=== PATIENT | male | born 1945 | race Caucasian/White ===

== ENCOUNTER 2017-12-20 15:48 | Outpatient (CLI) | payer MEDICARE, OTHER ==
[2017-12-20 17:31] LABS: #Eosinphils 0.3 thou/uL (0.0-0.7); #Lymphocytes 1.3 thou/uL (1.20-3.40); #Monocytes 0.8 thou/uL (0.11-0.59); #Neutrophils 5.4 thou/uL (1.40-6.50); %Basophils 0.5 % (0.0-1.0); %Eosinophils 3.7 % (0.0-10.0); %Lymphocytes 16.5 % (21.0-51.0); %Neutrophils 69.3 % (42.0-75.0); Hemoglobin 12.3 g/dL (14.0-18.0); Mean Corpuscular HGB CONC 34.1 g/dL (32.0-36.0); Mean Corpuscular Hemoglobin 30.2 pg (27.0-31.0); Mean Corpuscular Volume 88.6 fL (78.0-98.0); Platelet Count 279 thou/uL (130-400); RBC Distribution Width 13.8 % (11.5-14.5); Red Blood Cell (RBC) Count 4.06 mill/uL (4.70-6.10); White Blood Cell (WBC) Count 7.8 thou/uL (4.8-10.8)
[2017-12-20 18:22] LABS: Anion Gap 17 mmol/L (10-20); BUN (Urea Nitrogen) 24 mg/dL (8.4-25.7); Calc. Creatinine Clearance 0 mL/min (70-130); Calcium 10.3 mg/dL (7.8-10.44); Carbon Dioxide 20 mmol/L (23-31); Chloride 97 mmol/L (98-107); Estimated GFR-MDRD 57; Glucose 104 mg/dL (83-110); Potassium 4.1 mmol/L (3.5-5.1); Sodium 130 mmol/L (136-145)
--- NOTE | 2017-12-24 11:42 | EKG ---
Test Reason : Blood Pressure : / mmHG Vent. Rate : 087 BPM Atrial Rate : 087 BPM P-R Int : 228 ms QRS Dur : 136 ms QT Int : 396 ms P-R-T Axes : 064 039 091 degrees QTc Int : 476 ms Sinus rhythm with 1st degree A-V block Right bundle branch block Abnormal ECG Confirmed by CLIVE BORDEN ([id number]) on 12/24/2017 11:42:13 AM Referred By: SHIRA Confirmed By:CLIVE BORDEN
== END 2017-12-20 15:49 | disposition home or self-care (01) ==
LOC: LABBT 15:48
PROVIDERS: ATTEND Specialist
DX: Z01.818 Encounter for other preprocedural examination (principal)
CPT/HCPCS: 80048; 85025; 93005; 93010

== ENCOUNTER 2017-12-21 07:48 | Day surgery (SDC) | payer MEDICARE, OTHER ==
[2017-12-20 16:05] VITALS: BMI 27.6
--- NOTE | 2017-12-21 08:07 | HP ---
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. Patient had a feedi ng tube placed. He is still using that feeding tube. He had two lymph nodes positive. Margins were free. They are planning for radiation and chemotherapy and needs chemotherapy antineoplastic access . We will plan placement of a low profile MediPort. Risks and benefits discussed and he consents. ALLERGIES: MORPHINE. TOBACCO: Cessation, . ALCOHOL: None. 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 He is retir ed. He lives in [place]. ONCOLOGIST: Dr. Ken. PAST MEDICAL HISTORY: Hypertension, coronary artery disease, has had a coronary stent cleared by Dr. Hardy to undergo the esophageal resection and gastric reconstruction in October. Asymptomatic from a cardiac standpoint, elevated cholesterol, history of GERD, hemorrhoids. PAST SURGICAL HISTORY: Hernia repair, right and left in 1962 and 1970, lumbar surgery in 1980 and , right shoulder surgery in 2005, cervical spine surgery in 2005 and 2013, coronary artery stent pl aced in 2006 without history of myocardial infarction. Right knee meniscectomy in 2007, partial righ t knee replacement in 2012, left knee meniscus in 2013, EGD, biopsy Mcleod's esophagus in 2013, skin cancer removal in 09/2013, carpal tunnel release in 2014, gastric tumor resection in 2015, cervical fusion, radical prostatectomy, esophagectomy in 10/2017, gastric pull up and feeding tube. The patie nt is . REVIEW OF SYSTEMS: Otherwise noncontributory. PHYSICAL EXAMINATION: VITAL SIGNS: Weight 171 pounds, 66 inches. 130/71, 77, 98.4 degrees. HEENT: Unremarkable. LUNGS: Clear to auscultation. CARDIAC: Regular rate and rhythm without murmur or gallop. ABDOMEN: Soft, nontender, well-healed midline surgical incision. Feeding tube in place. EXTREMITIES: Unremarkable. ASSESSMENT AND PLAN: Esophageal carcinoma, status post resection. Staging as above. Low profile Me diPort, IV sedation, local anesthesia. Risk and benefits explained, questions answered.
[2017-12-21] MEDS ORDERED: CEFAZOLIN 2 GM/50 ML BAG ONE (08:10)
[2017-12-21] MEDS ORDERED: Bupivacaine HCl 0.5%/Epinephrine 1:200,000/PF 30 ml Vial ONE (08:37)
[2017-12-21] MEDS ORDERED: Lidocaine 2% PF 5 ML VIAL ONE (08:37)
[2017-12-21] MEDS ORDERED: Fentanyl 100 MCG/2 ML VIAL ONE (08:46)
[2017-12-21] MEDS ORDERED: PROPOFOL 40 ML ONE (08:46)
--- NOTE | 2017-12-21 10:05 | OP ---
DATE OF PROCEDURE: 12/21/2017 PREOPERATIVE DIAGNOSES: Esophageal carcinoma, status post esophagectomy and gastric pull-up with fee ding tube and 2 positive nodes. POSTOPERATIVE DIAGNOSES: Esophageal carcinoma, status post esophagectomy and gastric pull-up with fe eding tube and 2 positive nodes. PROCEDURE: Right subclavian vein low profile MediPort. SURGEON: Medardo Jaime M.D. ANESTHESIA: TIVA, local 0.5% Marcaine with epinephrine 30 mL mixed with 2% Xylocaine, 10 mL. PROCEDURE IN DETAIL: The patient was taken to the operating room where under intravenous sedation ne ck and chest were prepared with ChloraPrep, draped in routine fashion. Local anesthetic infiltrated into the skin and subcutaneous tissue about the operative site. 0.5% Marcaine with epinephrine, 30 m L, mixed with 2% Xylocaine, 10 mL mixture used. Trocar catheter cannulated the subclavian vein infra clavicular approach. J-wire threaded, trocar catheter removed. Skin incised and enlarged sharply of subcutaneous pocket created with blunt and sharp dissection using cautery for hemostasis. Dilator a nd pull-away sheath placed over the J-wire in the subclavian vein. Dilator and J-wire removed. Cath eter placed with pull-away sheath. Pull-away sheath removed. Fluoroscopically, catheter tip placed in optimal position in the superior vena cava and catheter tailored to length, connected to the MediP ort which was placed in subcutaneous pocket and secured with 2 interrupted sutures of 3-0 Prolene. S ubcutaneous tissues approximated with 3-0 Monocryl, skin with subdermal 4-0 Monocryl. Fluoroscopic i mages assured good line placement. Eduardo needle accessed the MediPort, aspirated blood and flushed w ith heparinized saline solution. The patient tolerated the procedure well.
--- NOTE | 2017-12-21 11:52 | RAD ---
FRONTAL RADIOGRAPH CHEST: DATE: 12/21/2017. COMPARISON: None. HISTORY: Evaluate chest following MediPort placement. FINDINGS: There is a right subclavian Port-A-Cath, distal tip overlying the region of the cavoatrial junction. There is atherosclerotic calcification in the aortic arch. There is no pneumothorax or pleural flui d. No focal consolidation or alveolar edema. There is increased linear interstitial density. Bilat eral degenerative changes of the acromioclavicular joints. There is postoperative hardware involving the cervical spine. IMPRESSION: Right-sided Port-A-Cath with no evidence for pneumothorax. POS: [facility]
== END 2017-12-21 10:55 | disposition home or self-care (01) ==
LOC: SDC 07:48
PROVIDERS: ATTEND Specialist
PROC: 0JH63WZ Insertion of Totally Implantable Vascular Access Device into Chest Subcutaneous Tissue and Fascia, Percutaneous Approach (ICD-10-PCS; principal; 2017-12-21)
DX: C15.9 Malignant neoplasm of esophagus, unspecified (principal); C77.9 Secondary and unspecified malignant neoplasm of lymph node, unspecified; M10.9 Gout, unspecified; E78.00 Pure hypercholesterolemia, unspecified; E07.9 Disorder of thyroid, unspecified; K21.9 Gastro-esophageal reflux disease without esophagitis; I25.10 Atherosclerotic heart disease of native coronary artery without angina pectoris; I10 Essential (primary) hypertension; Z87.891 Personal history of nicotine dependence; Z79.82 Long term (current) use of aspirin; Z79.899 Other long term (current) drug therapy; Z88.5 Allergy status to narcotic agent; Z88.8 Allergy status to other drugs, medicaments and biological substances; Z90.49 Acquired absence of other specified parts of digestive tract; Z95.5 Presence of coronary angioplasty implant and graft; Z98.890 Other specified postprocedural states
CPT/HCPCS: 36561; 71045; 76000; C1788; J0670; J1642; J2001; J2704; J3010

== ENCOUNTER 2018-01-04 14:01 | Emergency (ER) | payer MEDICARE, OTHER ==
[~2018-01-04 14:01] MED LIST: ISOVUE-370 76%-LOCM 1 ML ONE
[2018-01-04 14:35] LABS: #Eosinphils 0.1 thou/uL (0.0-0.7); #Lymphocytes 0.4 thou/uL (1.20-3.40); #Monocytes 0.3 thou/uL (0.11-0.59); #Neutrophils 6.9 thou/uL (1.40-6.50); %Basophils 0.2 % (0.0-1.0); %Eosinophils 1.2 % (0.0-10.0); %Lymphocytes 4.7 % (21.0-51.0); %Monocytes 3.5 % (0.0-10.0); %Neutrophils 90.4 % (42.0-75.0); Hemoglobin 12.4 g/dL (14.0-18.0); Mean Corpuscular HGB CONC 33.8 g/dL (32.0-36.0); Mean Corpuscular Hemoglobin 29.9 pg (27.0-31.0); Mean Corpuscular Volume 88.6 fL (78.0-98.0); Mean Platelet Volume 9.2 fL (7.4-10.4); Platelet Count 180 thou/uL (130-400); RBC Distribution Width 14.3 % (11.5-14.5); Red Blood Cell (RBC) Count 4.16 mill/uL (4.70-6.10); White Blood Cell (WBC) Count 7.7 thou/uL (4.8-10.8)
--- NOTE | 2018-01-04 14:47 | RAD ---
ONE VIEW CHEST: COMPARISON: 12/21/2017. History Cough and chest pain. FINDINGS: Note is made of a right-sided MediPort catheter, unchanged in position. Atherosclerosis of the aorta . Normal cardiac silhouette. The pulmonary vessels are within normal limits. Chronic changes of th e lung parenchyma. No consolidation or mass. No pleural effusion or pneumothorax. Cervical fusion hardware is noted. IMPRESSION: Atherosclerosis. No acute cardiopulmonary process. POS: [facility]
[2018-01-04 14:58] LABS: ALT (SGPT) 21 U/L (8-55); AST (SGOT) 18 U/L (5-34); Albumin 4.4 g/dL (3.4-4.8); Alkaline Phosphatase 74 U/L (40-150); Anion Gap 15 mmol/L (10-20); BUN (Urea Nitrogen) 29 mg/dL (8.4-25.7); Bilirubin, Total 1.2 mg/dL (0.2-1.2); CK (CPK) 37 U/L (30-200); Calc. Creatinine Clearance 0 mL/min (70-130); Calcium 10.1 mg/dL (7.8-10.44); Carbon Dioxide 23 mmol/L (23-31); Chloride 97 mmol/L (98-107); Estimated GFR-MDRD 60; Globulin 3.2 g/dL (2.4-3.5); Glucose 149 mg/dL (83-110); Potassium 4.4 mmol/L (3.5-5.1); Protein, Total 7.6 g/dL (5.8-8.1); Sodium 131 mmol/L (136-145)
[2018-01-04 15:00] LABS: CKMB 0.8 ng/mL (0-6.6); Troponin I Less than 0.010 ng/mL (< 0.028)
[2018-01-04] MEDS ORDERED: Fentanyl 100 MCG/2 ML VIAL ONE (15:15)
[2018-01-04] MEDS ORDERED: Ondansetron PF 4 MG/2 ML Vial ONE ×2 (15:15→18:20)
--- NOTE | 2018-01-04 15:50 | CT ---
CT ARTERIOGRAM CHEST WITH IV CONTRAST AND 3D MIP IMAGING: Date: 01/04/18 HISTORY: Chest pain and dyspnea. Recent chest surgery. COMPARISON: 08/09/15. FINDINGS: There is good contrast opacification of the pulmonary arteries and thoracic aorta with bovine origin of the great vessels. Calcification throughout the arterial structures. Marked hypertrophy of the lef t ventricle with a small ventricular cavity is apparent, similar in appearance to prior CT. Postopera tive changes in the mediastinum are consistent with recent esophageal resection and gastric pull-thro ugh. Within the partially visualized upper abdomen, stones are noted within the nondilated left renal erickson chris and within the dependent portion of the gallbladder lumen. IMPRESSION: 1. No CT evidence of pulmonary embolus. 2. Atherosclerosis. 3. Suspected left ventricular hypertrophy. 4. Recent postoperative changes of the mediastinum with gastric pull-through procedure. 5. Cholelithiasis. 6. Left renal calculi. POS: [facility]
== END 2018-01-04 19:15 | disposition home or self-care (01) ==
LOC: ERS 14:01
DX: R11.0 Nausea (principal); T45.1X5A Adverse effect of antineoplastic and immunosuppressive drugs, initial encounter; E78.5 Hyperlipidemia, unspecified; I10 Essential (primary) hypertension; Z87.891 Personal history of nicotine dependence; Z79.899 Other long term (current) drug therapy
CPT/HCPCS: 71045; 71275; 80053; 82553; 84484; 85025; 93005; J2405; J3010

== ENCOUNTER 2018-01-05 10:44 | Emergency (ER) | payer MEDICARE, OTHER ==
[2018-01-05 11:43] LABS: #Eosinphils 0.1 thou/uL (0.0-0.7); #Lymphocytes 0.2 thou/uL (1.20-3.40); #Monocytes 0.1 thou/uL (0.11-0.59); #Neutrophils 3.7 thou/uL (1.40-6.50); %Basophils 0.1 % (0.0-1.0); %Eosinophils 3.3 % (0.0-10.0); %Lymphocytes 5.5 % (21.0-51.0); %Monocytes 3.4 % (0.0-10.0); %Neutrophils 87.7 % (42.0-75.0); Hemoglobin 10.3 g/dL (14.0-18.0); Mean Corpuscular HGB CONC 32.8 g/dL (32.0-36.0); Mean Corpuscular Hemoglobin 29.9 pg (27.0-31.0); Mean Corpuscular Volume 91.2 fL (78.0-98.0); Mean Platelet Volume 8.7 fL (7.4-10.4); Platelet Count 144 thou/uL (130-400); RBC Distribution Width 14.5 % (11.5-14.5); Red Blood Cell (RBC) Count 3.46 mill/uL (4.70-6.10); White Blood Cell (WBC) Count 4.3 thou/uL (4.8-10.8)
[2018-01-05 12:02] LABS: ALT (SGPT) 12 U/L (8-55); AST (SGOT) 13 U/L (5-34); Albumin 3.7 g/dL (3.4-4.8); Alkaline Phosphatase 57 U/L (40-150); Anion Gap 13 mmol/L (10-20); BUN (Urea Nitrogen) 37 mg/dL (8.4-25.7); Bilirubin, Total 0.6 mg/dL (0.2-1.2); Calc. Creatinine Clearance 0 mL/min (70-130); Calcium 9.1 mg/dL (7.8-10.44); Carbon Dioxide 23 mmol/L (23-31); Chloride 98 mmol/L (98-107); Estimated GFR-MDRD 51; Globulin 2.6 g/dL (2.4-3.5); Glucose 108 mg/dL (83-110); Potassium 4.2 mmol/L (3.5-5.1); Protein, Total 6.3 g/dL (5.8-8.1); Sodium 130 mmol/L (136-145)
[2018-01-05 12:07] LABS: CKMB 1.2 ng/mL (0-6.6)
== END 2018-01-05 12:17 | disposition home or self-care (01) ==
LOC: ERS 10:44
DX: R94.31 Abnormal electrocardiogram [ECG] [EKG] (principal); I10 Essential (primary) hypertension; E78.5 Hyperlipidemia, unspecified; Z87.891 Personal history of nicotine dependence; Z79.899 Other long term (current) drug therapy
CPT/HCPCS: 36415; 80053; 82553; 84484; 85025; 93005

== ENCOUNTER 2018-03-19 12:03 | Outpatient (CLI) | payer MEDICARE, OTHER ==
--- NOTE | 2018-03-20 10:21 | PET ---
PET SCAN FROM SKULL BASE THROUGH MID THIGHS: INDICATION: History of esophageal cancer. RADIOPHARMACEUTICAL: 12.08 mCi of F18-FDG IV. TECHNIQUE: PET CT was obtained from the skull base to the mid thighs following IV introduction of the radiopharm aceutical. CT images were obtained for attenuation correction purposes only. COMPARISON: CTA of the thorax dated 12/25/[address] of the thorax and abdomen from [facility] 07/23/2015. FINDINGS: HEAD AND NECK: There is a focal region of activity with a peak SUV activity of 6.59 and mean activity of 5.03 involv ing the tongue which could be related to muscular activity. A focal lesion cannot be entirely exclud ed. No additional hypermetabolic lymphadenopathy is evident within the head and neck region. No hypermet abolic mass is identified. THORAX: There is postsurgical change of an esophagectomy with gastric pull-through. No hypermetabol ic activity is seen along the anastomotic suture line. No hypermetabolic lymphadenopathy is noted. No hypermetabolic pulmonary nodule is evident. There is scattered emphysema. Stable mild pleural th ickening involving the right posterior hemithorax. There is a prominent area of focal hypermetabolic activity involving the left ventricular apex. Ther e is diffuse hypertrophy of the left ventricular musculature on a comparison CTA of the thorax dated 12/25/2017 that appears slightly more prominent than the CT examination of 2015. The peak activity in volving the left ventricular apex was 6.4 with mean activity of 6.09. ABDOMEN AND PELVIS: No hypermetabolic mass or lymphadenopathy is evident within the abdomen and pelvis. There are millie us left renal cysts. There is bilateral nephrolithiasis. There is a layered density within the gall bladder suspicious for stones. 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 This has also worsened from the prior exam. Ectasia of the infrarenal abdominal aorta is again noted. SKIN AND OSSEOUS STRUCTURES: No hypermetabolic skin or osseous lesion is evident. There is a healing right posterior 12th rib fra cture without hypermetabolic uptake. IMPRESSION: Abnormal PET CT. 1. There is a prominent focal area of rounded hypermetabolic activity involving the tongue anteriorl y. This could be related to tongue musculature activity; however, a focal mass within the tongue can not be excluded. Recommend correlation with direct visualization. 2. Focal region of hypermetabolic activity involving the left ventricular apex with thickening of th e muscular wall of the left ventricle. Findings may be related to a hypertrophic-type cardiomyopathy or possibly cardiac metastatic disease. Recommend cardiology consultation and consideration for an echocardiogram. 3. No hypermetabolic abnormality is seen within the abdomen, pelvis, skin, or osseous structures. 4. Stable left renal cyst and bilateral nephrolithiasis. Layered hyperdensities within the gallblad brennen suspicious for gallstones. 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 There is stable ectasia of the infrarenal abdominal aorta. POS: [facility]
== END 2018-03-19 12:04 | disposition home or self-care (01) ==
LOC: PET 12:03
PROVIDERS: ATTEND Internal Medicine Hematology & Oncology
DX: C15.9 Malignant neoplasm of esophagus, unspecified (principal); R93.3 Abnormal findings on diagnostic imaging of other parts of digestive tract; R93.1 Abnormal findings on diagnostic imaging of heart and coronary circulation; N20.0 Calculus of kidney; N28.1 Cyst of kidney, acquired; I72.3 Aneurysm of iliac artery; I77.811 Abdominal aortic ectasia
CPT/HCPCS: 78815; A9552

== ENCOUNTER 2018-04-03 09:38 | Outpatient (CLI) | payer MEDICARE, OTHER ==
--- NOTE | 2018-04-03 10:59 | ULT ---
RIGHT UPPER QUADRANT ULTRASOUND: 04/03/2018 HISTORY: Esophageal cancer. Epigastric abdominal pain. COMPARISON: PET CT scan on 03/19/2018. FINDINGS: The majority of the pancreas is obscured by bowel gas. The limited visualized portion of the pancrea s, the visualized portions of the IVC, and the liver demonstrate a normal sonographic appearance. There is echogenic material seen near the region of the neck of the gallbladder. This may be attribu table to a closely adjacent loop of bowel, but sludge within the gallbladder lumen, in the region of the neck of the gallbladder, is also a possibility, as there was increased density material seen with in the gallbladder on prior PET CT exam on 03/19/2018. No gallbladder calculus is present. There is no gallbladder wall thickening or pericholecystic fluid. The common duct measures 0.6 cm, which is within normal limits for the patient's age. There is mild fullness in the right renal pelvis, without overt hydronephrosis, as there is no calyce al dilatation. The right kidney measures 10.3 cm in length. IMPRESSION: 1. Question of echogenic material within the region of the neck of the gallbladder; however, there i s an adjacent loop of bowel in this region, and this could be related to a loop of bowel and adjacent mass effect in this region, although tumefactive of sludge is a possibility. There was echogenic ma terial in the gallbladder lumen seen on a PET CT exam on 03/19/2018. Follow-up evaluation is suggest ed. No gallbladder calculus is seen, and there is no gallbladder wall thickening noted. 2. The common duct is normal in caliber. POS: [facility]
== END 2018-04-03 09:39 | disposition home or self-care (01) ==
LOC: BICULT 09:38
PROVIDERS: ATTEND Internal Medicine Gastroenterology
DX: R10.13 Epigastric pain (principal); Z85.01 Personal history of malignant neoplasm of esophagus
CPT/HCPCS: 76705

== ENCOUNTER 2018-04-18 12:42 | Outpatient (CLI) | payer MEDICARE, OTHER ==
--- NOTE | 2018-04-18 17:19 | NM ---
HEPATOBILIARY SCAN AND GALLBLADDER EJECTION 04/18/18 HISTORY: Unspecified abdominal pain. DOSE: 5.1 millicuries technetium 99m Choletec given IV and 8 oz of Ensure one hour post injection given p.o . Dynamic imaging was performed. Images demonstrate uptake of the radioisotope with concentration seen in the gallbladder. Gallbladder ejection fraction at 40 minutes measured 83%. There is rapid contraction of the gallbladder. Ejectio n fraction is within normal limits. No evidence of common bile duct, cystic duct or common hepatic du ct obstruction seen. There is free flow of isotope from the liver into the duodenum and small bowel. IMPRESSION: Normal gallbladder uptake and ejection fraction. POS: [facility]
== END 2018-04-18 12:43 | disposition home or self-care (01) ==
LOC: NM 12:42
PROVIDERS: ATTEND Internal Medicine Gastroenterology
DX: R10.9 Unspecified abdominal pain (principal); R93.2 Abnormal findings on diagnostic imaging of liver and biliary tract
CPT/HCPCS: 78227; A9537

== ENCOUNTER 2018-08-21 08:48 | Outpatient (CLI) | payer MEDICARE, OTHER ==
--- NOTE | 2018-08-21 11:34 | PET ---
Exam: Whole body PET imaging HISTORY: Lower third esophageal cancer. COMPARISON: 03/19/2018 TECHNIQUE: PET scan was obtained with CT attenuation correction from the skull vertex to the proximal thighs following the intravenous administration of 11.8 mCi of [id number]-[id number] FINDINGS: Head and neck: No abnormal FDG localization. Comparison noted FDG localization at the anterior tongue base is no longer seen. CHEST: No abnormal FDG localization. CT used for attenuation correction demonstrates gastric pull-thr ough. There are bilateral pleural effusions with adjacent lung parenchymal changes, likely due to posttreatment. There is persistent FDG avidity in the left ventricular apex. Maximum SUV is 10.3. Pr eviously, the maximum SUV is reported to be 6.4. Abdomen and pelvis: Bilateral renal cysts are noted on this CT used for attenuation correction. Ther e is no abnormal FDG localization Osseous structures: No abnormal FDG localization IMPRESSION: 1. Interval lack of FDG avidity at the tongue base. Findings on previous exam likely due to muscle mo vement 2. Increased FDG avidity in the apex of the left ventricle. Consider cardiac MRI for further evaluati on. Transcribed Date/Time: 08/21/2018 12:35 PM
== END 2018-08-21 08:49 | disposition home or self-care (01) ==
LOC: PET 08:48
PROVIDERS: ATTEND Internal Medicine Hematology & Oncology
DX: C15.5 Malignant neoplasm of lower third of esophagus (principal); R22.0 Localized swelling, mass and lump, head
CPT/HCPCS: 78815; A9552

== ENCOUNTER 2018-09-27 06:50 | Day surgery (SDC) | payer MEDICARE, OTHER ==
--- NOTE | 2018-09-26 08:55 | HP ---
HISTORY OF PRESENT ILLNESS: Daniel Kwon, FRANCA is a 73-year-old male patient. He has a recurrent right inguinal hernia. Plan is to repair that using mesh as an outpatient robotically, laparoscopic-assisted. He understands the risks of infection, bleeding, reoperation, recurrence of the hernia, and consents. This is a recurrent right inguinal hernia, previously repaired in the in 1960s. He has had a left inguinal hernia repaired in the 1970s. When he presented, he was incarcerated. He hopes to avoid incarceration by having this repaired electively. The patient does have known coronary artery disease, underwent cardiac stress test after coronary stents placed in 2006. Last year, after negative cardiac stress test, the patient underwent a transhiatal esophagectomy with gastric pull-up for esophageal cancer and has completed postoperative chemotherapy and radiation therapy. I had previously placed his MediPort and subsequently removed it in the office. ALLERGIES: MORPHINE, CYCLOBENZAPRINE. SOCIAL HISTORY: Tobacco use in the past, cessation for many years. Alcohol, none. 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 He lives in [place]. Oncologist, Dr. Ken. PAST MEDICAL HISTORY: Hypertension, coronary artery disease, coronary stent placed in 2006. Dr. Hardy follows him and he has stress test in 2018. He is asymptomatic from a cardiac standpoint. Elevated cholesterol, history of GERD, hemorrhoids, history of Mcleod's esophagus and esophagectomy with gastric pull-up. PAST SURGICAL HISTORY: In 1962, right inguinal hernia repair in the . In 1970, left inguinal hernia repair, incarcerated emergently. Lumbar surgery x2. Cervical spine surgery x3. Prostatectomy for prostate cancer. Meniscectomy in knee, 2007. Right total knee replacement in 2012. Left meniscectomy in knee in 2013. EGD, biopsies, Mcleod's esophagus in 2013. Skin cancers removed in 2013. Carpal tunnel release in 2014. Gastric tumor resection in 2015. Cervical fusion, radical prostatectomy, esophagectomy. In October 2017, gastric pull-up with esophagogastrostomy anastomosis, cervical. He had a feeding tube temporarily, had been removed. The patient is . REVIEW OF SYSTEMS: Noncontributory. PHYSICAL EXAMINATION: VITAL SIGNS: Weight 144 pounds, height 66 inches, BMI 23, blood pressure 165/73, heart rate 67, temperature 98.8 degrees. HEAD, EARS, EYES, NOSE AND THROAT: Unremarkable. LUNGS: Clear to auscultation. CARDIAC: Regular rate and rhythm without murmur or gallop. ABDOMEN: Soft, nontender. Sclerae nonicteric. SKIN: Nonjaundiced. NEUROLOGIC: Intact. LYMPH: No lymphadenopathy in neck, axilla, or groins. EXTREMITIES: Lower extremities without edema. GENITOURINARY: Testicles normal. Left groin without hernia. Right groin, hernia on standing, enlarges on Valsalva. ASSESSMENT AND PLAN: 1. Recurrent right inguinal hernia. Plan robot repair using mesh, possibly open procedure due to previous scar tissue. I explained risks of infection, bleeding, reoperation, recurrence of hernia, testicular injury discussed, questions answered. 2. History of esophageal cancer, status post esophagectomy, gastric pull-up with feeding tube subsequently removed and postoperative radiation and chemotherapy. 3. History of prostate cancer, history of prostatectomy. Job ID: [id number]
[2018-09-26 11:48] VITALS: BMI 23.7
[2018-09-27 07:25] LABS: #Eosinphils 0.2 thou/uL (0.0-0.7); #Monocytes 0.6 thou/uL (0.11-0.59); #Neutrophils 2.3 thou/uL (1.40-6.50); %Basophils 0.7 % (0.0-1.0); %Eosinophils 4.5 % (0.0-10.0); %Lymphocytes 24.5 % (21.0-51.0); %Monocytes 13.8 % (0.0-10.0); %Neutrophils 56.5 % (42.0-75.0); Hemoglobin 12.4 g/dL (14.0-18.0); Mean Corpuscular HGB CONC 32.6 g/dL (32.0-36.0); Mean Corpuscular Hemoglobin 30.7 pg (27.0-31.0); Mean Corpuscular Volume 94.1 fL (78.0-98.0); Mean Platelet Volume 8.8 fL (7.4-10.4); Platelet Count 155 thou/uL (130-400); RBC Distribution Width 12.9 % (11.5-14.5); Red Blood Cell (RBC) Count 4.05 mill/uL (4.70-6.10); White Blood Cell (WBC) Count 4.1 thou/uL (4.8-10.8)
[2018-09-27 07:45] LABS: Anion Gap 10 mmol/L (10-20); BUN (Urea Nitrogen) 17 mg/dL (8.4-25.7); Calc. Creatinine Clearance 57 mL/min (70-130); Calcium 10.2 mg/dL (7.8-10.44); Carbon Dioxide 31 mmol/L (23-31); Chloride 101 mmol/L (98-107); Estimated GFR-MDRD 67; Glucose 109 mg/dL (83-110); Potassium 3.6 mmol/L (3.5-5.1); Sodium 138 mmol/L (136-145)
[2018-09-27] MEDS ORDERED: ceFAZolin Sodium (SDC) 2 GM/100 ML BAG ONE (07:55)
[2018-09-27] MEDS ORDERED: Ketorolac Tromethamine 30 MG/ML VIAL ONE (07:55)
[2018-09-27] MEDS ORDERED: Bupivacaine/Epinephrine 0.25% 30 ML VIAL ONE (09:40)
[2018-09-27] MEDS ORDERED: Bupivacaine HCl 0.5%/Epinephrine 1:200,000/PF 30 ml Vial ONE (09:52)
[2018-09-27] MEDS ORDERED: Fentanyl 100 MCG/2 ML VIAL ONE (09:55)
--- NOTE | 2018-09-27 13:10 | OP ---
DATE OF PROCEDURE: 09/27/2018 PREOPERATIVE DIAGNOSIS: Recurrent right inguinal hernia. POSTOPERATIVE DIAGNOSIS: Recurrent right inguinal hernia. PROCEDURE PERFORMED: Robot laparoscopic-assisted 3DMax large repair of recurrent right inguinal hernia. ANESTHESIA: General, local 0.5% Marcaine with epinephrine 30 mL. DESCRIPTION OF PROCEDURE: The patient was taken to the operating room, where under general anesthesia, abdomen was prepared with ChloraPrep and draped in routine fashion. Alvarez catheter placed in the beginning of the operation and bladder filled with 180 mL of fluid prior to removal at the end of the operation. Abdomen was prepared with ChloraPrep and draped in routine fashion. Because of a midline incision from a previous esophagectomy and gastric pull-up, a right lateral subcostal incision made and pneumoperitoneum to 15 mmHg obtained with a Veress needle and replaced with an 8 mm port and robot scope inserted. There were adhesions in the midline. There was adhesion of small bowel to the left of midline above the umbilicus and this area was stayed clear. Right paramedian incision made above the umbilicus and the 11 mm port placed and left lateral abdominal mid incision made and an 8 mm port placed. Robot was docked and right inguinal hernia repair undertaken. There was a large defect in the right groin indicative of an indirect right inguinal hernia. Incision was made in the peritoneum from the anterior superior iliac spine to the midline and the flap of peritoneum dissected free medially to the pubis bone, Theo's ligament and laterally inferiorly developed in the peritoneal flap and then inferior epigastric vessels identified and dissected free from the peritoneal flap and the cord structures identified and hernia sac and lipoma of the cord dissected free from the cord structures well away from the cord structures to enable placement of a mesh covering at least 6 to 7 cm of the cord structures retroperitoneally. Mesh properly oriented, and medially, the mesh secured to Theo's ligament and anteriorly laterally secured to the abdominal wall lateral to the inferior gastric vessels with 2-0 Vicryl. Peritoneal flap closed with continuous suture of 2-0 V-Loc suture. Good hemostasis was noted. Pneumoperitoneum reduced. All instruments were removed, and all skin incisions were approximated with interrupted subdermal 4-0 Monocryl and [place] glue applied. Job ID: [id number]
--- NOTE | 2018-09-27 16:28 | EKG ---
Test Reason : PREOP Blood Pressure : / mmHG Vent. Rate : 077 BPM Atrial Rate : 077 BPM P-R Int : 164 ms QRS Dur : 130 ms QT Int : 398 ms P-R-T Axes : -42 073 -24 degrees QTc Int : 450 ms Unusual P axis, possible ectopic atrial rhythm with Premature atrial complexes Right bundle branch block Minimal voltage criteria for LVH, may be normal variant T wave abnormality, consider lateral ischemia Abnormal ECG When compared with ECG of 05-JAN-2018 10:51, Ectopic atrial rhythm has replaced Sinus rhythm Non-specific change in ST segment in Inferior leads Confirmed by CRISTIANA HINSON, DR. Scott ([id number]) on 09/27/2018 4:28:19 PM Referred By: SHIRA Confirmed By:DR. Tyler ZENDEJAS MD
== END 2018-09-27 18:25 | disposition home or self-care (01) ==
LOC: SDC 06:50
PROVIDERS: ATTEND Specialist
PROC: 0YU54JZ Supplement Right Inguinal Region with Synthetic Substitute, Percutaneous Endoscopic Approach (ICD-10-PCS; principal; 2018-09-27)
PROC: 8E0W4CZ Robotic Assisted Procedure of Trunk Region, Percutaneous Endoscopic Approach (ICD-10-PCS; 2018-09-27)
DX: K40.91 Unilateral inguinal hernia, without obstruction or gangrene, recurrent (principal); E78.2 Mixed hyperlipidemia; I10 Essential (primary) hypertension; I25.10 Atherosclerotic heart disease of native coronary artery without angina pectoris; I25.83 Coronary atherosclerosis due to lipid rich plaque; K21.9 Gastro-esophageal reflux disease without esophagitis; E78.00 Pure hypercholesterolemia, unspecified; Z85.01 Personal history of malignant neoplasm of esophagus; Z85.46 Personal history of malignant neoplasm of prostate; Z92.21 Personal history of antineoplastic chemotherapy; Z92.3 Personal history of irradiation; Z87.891 Personal history of nicotine dependence; Z79.82 Long term (current) use of aspirin; Z79.899 Other long term (current) drug therapy; Z88.5 Allergy status to narcotic agent; Z88.8 Allergy status to other drugs, medicaments and biological substances; Z95.5 Presence of coronary angioplasty implant and graft; Z90.49 Acquired absence of other specified parts of digestive tract; Z90.79 Acquired absence of other genital organ(s)
CPT/HCPCS: 49651; 80048; 85025; 93005; C1781; S2900; 36415; 93010; J0131; J0670; J0690; J1885; J3010

== ENCOUNTER 2019-03-25 12:44 | Outpatient (CLI) | payer MEDICARE, OTHER ==
--- NOTE | 2019-03-25 13:46 | RAD ---
CHEST 2 VIEWS: Date: 03/25/2019 HISTORY: Chest and back pain. Esophageal cancer. COMPARISON: Increased linear, interstitial, reticulonodular parenchymal changes noted bilaterally, with the appea chavez of some scarring in the right costophrenic angle and left base. Old granulomatous disease. No s ignificant cardiomegaly. IMPRESSION: Linear parenchymal changes, particularly in the costophrenic angles, from prior study, having more of a chronic appearance. Old granulomatous disease. Atherosclerosis of aorta. No confluent pneumonia, o vert edema, or pleural effusion. POS: [facility]
--- NOTE | 2019-03-25 13:54 | RAD ---
THORACIC SPINE 3 VIEWS: Date: 03/25/2019 HISTORY: Back pain, chest pain, esophageal cancer. FINDINGS: Anterior cervical fusion changes noted of the lower cervical spine. There is vertebral body collapse with approximately 50% vertical height loss of T7. There is also less than 50% vertical height loss c ollapse of T12. These have more of a chronic appearance radiographically, although if these are felt to be acute, additional imaging might be needed for further assessment in that regard. Old granuloma calcifications. Atherosclerosis of aorta with ectasia. IMPRESSION: Vertebral body collapse, most marked at T7, and somewhat less marked at T12, age indeterminate. No ev idence for other acute process. POS: [facility]
== END 2019-03-25 12:45 | disposition home or self-care (01) ==
LOC: BICRAD 12:44
PROVIDERS: ATTEND Internal Medicine Hematology & Oncology
DX: R07.9 Chest pain, unspecified (principal); M54.6 Pain in thoracic spine; C15.5 Malignant neoplasm of lower third of esophagus; M48.54XA Collapsed vertebra, not elsewhere classified, thoracic region, initial encounter for fracture; I70.0 Atherosclerosis of aorta; R91.8 Other nonspecific abnormal finding of lung field
CPT/HCPCS: 71046; 72072

== ENCOUNTER 2020-02-18 07:31 | Outpatient (CLI) | payer MEDICARE, OTHER ==
--- NOTE | 2020-02-18 12:42 | NM ---
Gastric emptying examination: 02/18/2020 HISTORY: Nausea and vomiting, history of esophagectomy with gastric pull-through procedure TECHNIQUE: The patient ingested 2 mCi of technetium 99m labeled sulfur colloid in scrambled eggs and imaging was then performed over a 4 hour timeframe FINDINGS: Linear radiotracer activity is seen overlying the expected location of the chest on all pro vided imaging. There is radiotracer activity within bowel beneath the diaphragm. There is incomplete emptying of the radiotracer from the stomach into the abdomen with only 42% emptying at 4 hours. Given the patient's prior surgical history, it is assumed that emptying of the postoperative intrathoracic stomach would primarily be based on gravity and thus, these findings are suspicious for an underlying obstruction which could be benign or malignant in nature. Recommend direct visualization via endoscopy. CT may be beneficial as well. The radiotracer activity within the chest demonstrates only 12% emptying at 1 hour, 22% emptying at 2 hours and 37% emptying at 3 hours. IMPRESSION: Incomplete emptying of the radiotracer from the postoperative intrathoracic stomach to th e abdomen which is suspicious for underlying obstruction. Please see above discussion. CODE T
== END 2020-02-18 07:32 | disposition home or self-care (01) ==
LOC: NM 07:31
PROVIDERS: ATTEND Physician Assistant Medical
DX: R11.10 Vomiting, unspecified (principal)
CPT/HCPCS: 78264; A9541

== ENCOUNTER 2020-02-22 10:07 | Inpatient (IN) | payer MEDICARE, OTHER ==
[2020-02-22 10:46] LABS: Hemoglobin 12.1 g/dL (14.0-18.0); Mean Corpuscular HGB CONC 33.3 g/dL (32.0-36.0); Mean Corpuscular Volume 93.1 fL (78.0-98.0); Mean Platelet Volume 10.4 fL (7.4-10.4); Platelet Count 172 thou/uL (130-400); RBC Distribution Width 14.7 % (11.5-14.5); White Blood Cell (WBC) Count 13.2 thou/uL (4.8-10.8)
[2020-02-22 11:07] LABS: ALT (SGPT) 9 U/L (8-55); AST (SGOT) 17 U/L (5-34); Albumin 3.7 g/dL (3.4-4.8); Alkaline Phosphatase 94 U/L (40-110); Anion Gap 17 mmol/L (10-20); BUN (Urea Nitrogen) 41 mg/dL (8.4-25.7); Bilirubin, Total 0.6 mg/dL (0.2-1.2); Calc. Creatinine Clearance 0 mL/min (70-130); Calcium 8.1 mg/dL (7.8-10.44); Carbon Dioxide 22 mmol/L (23-31); Chloride 99 mmol/L (98-107); Globulin 3.4 g/dL (2.4-3.5); Glucose 133 mg/dL (83-110); Lipase Less than 4 U/L (8-78); Potassium 4.2 mmol/L (3.5-5.1); Protein, Total 7.1 g/dL (5.8-8.1); Sodium 134 mmol/L (136-145)
[2020-02-22 11:16] LABS: Band 3 % (5-11); Large Platelets SLIGHT; Lymphocytes 5 % (21-51); MDiff Complete? YES; Monocytes 6 % (0-10); Neutrophil 85 % (42-75); Platelet Morphology Comment Appears Adequate; RBC Morphology Normal
[2020-02-22] MEDS ORDERED: Aspirin 325 MG TAB ONE (11:57)
--- NOTE | 2020-02-22 11:58 | RAD ---
Chest one view HISTORY: Dyspnea. COMPARISON: 01/04/2018. FINDINGS: Cardiac silhouette is magnified by projection. Pulmonary vasculature are unremarkable. Mediastinum is midline with aortic calcification. Multilevel vertebroplasty cement. Linear atelectasis at the left base has increased slightly. Subtle ill-defined patchy opacity projects over the right base. No lobar consolidation or evidence of pneumothorax. Old left rib fractures. Postoperative changes cervical spine. IMPRESSION : Subtle right basilar infiltrate. Correlate for active pneumonitis. Other chronic-type findings, stable.
[2020-02-22 12:05] LABS: CKMB 5.2 ng/mL (0-6.6)
--- NOTE | 2020-02-22 12:25 | CT ---
CT abdomen and pelvis noncontrast HISTORY: Vomiting. Abdomen pain. Renal failure. FINDINGS: Mild parenchymal scarring and atelectasis at the lung bases. Postoperative changes near the GE junction consistent with prior esophagectomy and pull-through procedure. Gallbladder is distended up to 9.7 cm. Hyperdense stones in the dependent portion. No significant adj acent inflammation. Multiple lobular cysts arise from the cortex of each kidney. The largest on the left measures up to 8 .7 cm oblique diameter and extends into the pelvis.. Multiple renal stones are again demonstrated throughout each kidney. The largest on the right measures up to 0.7 cm. The largest on the left up to 1.0 cm. No evidence of urinary tract obstruction. Lack of contrast limits evaluation of the soft tissues. There is fusiform dilatation of the lower abd ominal aorta up to 2.9 cm. Dilatation of the right common iliac artery up to 2.9 cm in the left 2.0 cm. Prominent calcification throughout the arterial structures. Small amount of gas is present within the urinary bladder. There are prominent degenerative changes throughout the lumbar spine. Vertebral plasty cement involve s multiple lower thoracic vertebral bodies. IMPRESSION : No evidence of bowel obstruction. Cholelithiasis. Gallbladder distention up to 9.7 cm without inflammation evident. Correlate for acute cholecystitis. Small amount of gas within the urinary bladder. Recent instrumentation? Bilateral renal calculi. Chronic-type findings are stable compared to PET/CT from 03/19/2018.
[2020-02-22 12:27] LABS: Bacteria/HPF 4+ HPF (None Seen); Bilirubin Negative (Negative); Blood, Urine 3+ (Negative); Clarity Extra Turbid (Clear); Glucose, Urine (Dipstick) Normal (Negative); Ketone, Urine Trace mg/dL (Negative); Leukocyte 500 Leu/uL (Negative); Nitrite Negative (Negative); Protein, Urine (Dipstick) 70 mg/dL (Neg-Trace); RBC/HPF Greater than 50 HPF (0-3); Specific Gravity, Urine 1.021 (1.002-1.036); Squamous Epithelial 0-3 HPF (0-3); Urobilinogen Normal mg/dL (Less than 2); WBC/HPF Greater than 50 HPF (0-3)
[2020-02-22] MEDS ORDERED: Vancomycin 1 GM/200 ML BAG ONE ×2 (12:37→12:42)
[2020-02-22] MEDS ORDERED: cefTRIAXone\\ROCEPHIN 2 GM VIAL ONE (12:37)
[2020-02-22] MEDS ORDERED: Ondansetron PF 4 MG/2 ML Vial IVP PRN (15:33)
[2020-02-22] MEDS ORDERED: Acetaminophen 325 MG TAB PO PRN (15:33)
[2020-02-22] MEDS: Sodium Chloride 0.9% 1,000 ML IV SCH ×2 (16:19→23:34)
[2020-02-22 18:21] LABS: Critical Call Chem Troponin I RESULT DECREASING; Troponin I 1.603 ng/mL (< 0.028)
--- NOTE | 2020-02-22 19:35 | HP ---
PRIMARY CARE PHYSICIAN: . ORDNANCE EQUIPMENT WORKER: Dr. Sánchez. NURSE PRACTITIONER PER DIEM: Dr. Hardy. CHIEF COMPLAINT: "I have problems eating for the last 6 weeks." HISTORY OF PRESENT ILLNESS: Mr. Kwon is a very pleasant 75-year-old gentleman, who says that he has been having problems eating for the past 6 weeks. He says it is started off with primarily solid foods. He says that he would eat something and then about anywhere from 5 to 20 minutes later, he would throw it up. He denies having any odynophagia or pain with swallowing and he denies any feeling that the food gets stuck in his throat. He says he has had esophageal cancer and he knows what that feels like. He also denies any abdominal pain whatsoever. He says over the weekend, it got progressively worse to the point where he could not even hold water down. He recently had gone to have a gastric emptying study, which was ordered by Dr. Sánchez and he says that after having the test done, they said that it was "bad results" and that he needed to get scheduled to get a COVID test because they were going to schedule him to have some other tests done to see if he had some type of obstruction in the small bowel. Before he could have this done, his symptoms worsen to the point where he had to come to the emergency room. He also notes some chills, but no fever. When asked if the smell of food bothers and he denies that and says he is actually hungry all the time and wants to eat, but he is afraid to eat due to the symptoms. He also denies any chest pain or shortness of breath. No arm or extremity discomfort. He came to the emergency room where he had a CT scan done of the abdomen and pelvis, which was essentially unremarkable except for a slightly distended gallbladder. He was found to be in acute kidney injury and also found to have findings consistent with a urinary tract infection. He also has not urinated he says in the last 3 days and had tried to in and out self cath, but only blood come out. Otherwise, the patient has no other complaints. REVIEW OF SYSTEMS: All systems were reviewed and are negative except for that mentioned in the history of present illness. PAST MEDICAL HISTORY: Significant for esophageal cancer, prostate cancer, coronary artery disease and a cardiac stent placed in 2006, and hypertension. However, he says his blood pressure has been low lately and he has not been on any blood pressure medicines. PAST SURGICAL HISTORY: He has had an esophagectomy in October of 2017 and also a prostatectomy in April of 2017. ALLERGIES: MORPHINE WHICH CAUSES A RASH AND GENERIC FLEXERIL WHICH CAUSES HIVES. SOCIAL HISTORY: He is a former smoker. Denies any alcohol use. He is for 56 years. His is his surrogate decision maker. He wants to be a full code, but does not want to be on life support for more than a few months. FAMILY HISTORY: Significant for cancer and heart disease. CURRENT MEDICATIONS: Include: 1. Simvastatin 40 mg once daily. 2. Lisinopril 40 mg daily. 3. Pantoprazole 40 mg a day. 4. Allopurinol 300 mg daily. 5. Hydrochlorothiazide 25 mg daily. 6. Levothyroxine 75 mcg once a day. 7. Zofran 4 mg q.6 as needed. 8. Reglan 10 mg q.6 as needed. 9. Primidone 50 mg daily. 10. Aspirin 81 mg a day. PHYSICAL EXAMINATION: GENERAL: He is alert and oriented. He appears to be in no acute distress. He is well developed, although he does appear a bit thin in appearance. VITAL SIGNS: Blood pressure was 104/58, heart rate 92, respiratory rate of 19, temperature is 97.8, and O2 saturation was 96% on room air. HEENT: Pupils are equal, round, and reactive. Extraocular muscles are intact. His sclerae are anicteric. NECK: There is no adenopathy, no bruits. LUNGS: Clear to auscultation. There is no wheezing, no rales, no rhonchi. CARDIOVASCULAR: He has a normal S1 and S2. There is no S3 or S4. No murmurs, clicks, or rubs. ABDOMEN: Soft, nontender, nondistended. Positive for bowel sounds. No rebound. No guarding. No organomegaly. EXTREMITIES: There is no clubbing or cyanosis. No edema. No calf tenderness. No joint effusions. NEUROLOGIC: Nonfocal. SKIN AND INTEGUMENT: No skin changes. No rash. LABORATORY RESULTS: Sodium 134, potassium 4.2, chloride is 99, CO2 is 22, BUN of 41, creatinine 2.67, glucose is 133. White blood cell count is 13.2, hemoglobin 12.1, hematocrit is 36.3, and platelet count is 172. Urinalysis, white blood cell count on the urine was greater than 50, 4+ bacteria, and 3+ blood and was extra turbid. ASSESSMENT: 1. This is a 75-year-old gentleman, who presents with dysphagia to both solids and liquids, which has been getting progressively worse to the point where the patient has developed severe dehydration and acute kidney injury. It is also noted that his troponin is elevated. He has no symptoms attributed to coronary artery disease and I suspect that this is a demand ischemia. However, he does have a history of a stent placed back in 2006, so an non-ST segment elevation myocardial infarction type 1 is a possibility. For the plan for the dysphagia, we will go ahead and consult GI, place him on IV proton pump inhibitor, and leave him n.p.o. for now and place him on IV fluid resuscitation. 2. Acute kidney injury. I suspect this is due to prerenal azotemia. We will check a renal ultrasound. Place him on again IV fluids and if there does not appear to be improvement overnight, then consider nephrology consult. 3. Elevated troponin. This is an non-ST segment elevation myocardial infarction type 2 versus type 1. We will continue to trend his cardiac enzymes, get an echo cardiogram as well as a cardiology consult. 4. Urinary tract infection, likely due to the sluggish urine flow due to dehydration. Start him on Rocephin and follow up with urine culture results. We will check a postvoid residual after he is more adequately hydrated just to ensure that he does not have any type of urinary retention. Job ID: [id number]
--- NOTE | 2020-02-22 21:48 | ULT ---
Bilateral renal ultrasound CLINICAL INDICATION: Acute kidney injury. COMPARISON: Noncontrast CT abdomen on 02/22/2020 FINDINGS: Right kidney: As noted on the prior CT examination, there are a few echogenic foci with shadowing com patible with nonobstructing renal calculi largest seen midportion right kidney measuring 0.9 cm. There is an exophytic 1.3 cm anechoic structure lower pole right kidney compatible with a small cyst. There is prominence of the right renal pelvis without overt hydronephrosis present.The right kidney measures 10.6 cm x 5 cm. Left kidney: Multiple anechoic structures are seen within the left kidney largest at the inferior razia e left kidney measuring 9 cm x 5.3 cm, and these anechoic cystic lesions demonstrate characteristics compatible with cysts. There is no hydronephrosis present. Few echogenic foci are pre sent with posterior shadowing compatible with nonobstructing left renal calculi. Calculus in the midportion left kidney measures 1.5 cm.The left kidney measures 14.2 cm x 6.1 cm. Size discrepancy in the kidneys is related to the large inferior pole left renal cyst.. There are a few areas of mild renal cortical thinning on the left. Urinary bladder: Within normal limits for degree of distention. Ureteral jets not visualized on this exam. IMPRESSION: 1. Bilateral renal cysts more numerous on the left and larger in size on the left. 2. Nonobstructing bilateral renal calculi. 3. Normal appearance of the urinary bladder.
[2020-02-22 22:41] LABS: SARS-CoV-2 MS2 Positive; SARS-CoV-2 N Gene Negative; SARS-CoV-2 S Gene Negative; SARS-CoV-2 by NAA Not Detected (NotDetected); SARS-CoV-2 orf1ab Negative
--- NOTE | 2020-02-22 23:16 | CON ---
DATE OF CONSULTATION: 02/22/2020 REASON FOR CONSULTATION: Increased troponin in the setting of severe dehydration. PRIMARY FACILITY TECHNICIAN: Dr. Joey Hardy. HISTORY OF PRESENT ILLNESS: Mr. Kwon is a very pleasant gentleman. He has a history of esophageal cancer. He had successful surgery and subsequently chemotherapy and radiation therapy. He has developed increasing difficulty getting food down and has gotten in the last few days he can hardly get any fluids down. He came to the hospital with weakness and fatigue. As part of the evaluation, a troponin level was drawn, that will be outlined below. The patient has no chest pain or pressure. MEDICATIONS: At home, he was taking, 1. Levothyroxine. 2. Simvastatin. 3. Hydrochlorothiazide. 4. Allopurinol. 5. Pantoprazole. 6. Lisinopril. 7. Aspirin 81 mg a day. 8. Mysoline. REVIEW OF SYSTEMS: CONSTITUTIONAL: Positive for weakness and fatigue and weight loss. VISION: No changes. HEARING: No changes. PULMONARY: No cough or wheezing. GASTROINTESTINAL: No nausea, vomiting, diarrhea, but he is really unable to eat almost anything as mentioned above. SKIN: No rashes. NEUROLOGIC: No unilateral weakness or numbness. PSYCHIATRIC: No unusual depression or anxiety. PHYSICAL EXAMINATION: GENERAL: This is a thin gentleman, who clearly has lost a lot of weight. VITAL SIGNS: His blood pressure is low, 98/55, pulse 82, regular. LUNGS: Clear. CARDIAC: Normal S1, normal S2. ABDOMEN: Soft, nontender. EXTREMITIES: Warm, dry. No clubbing or cyanosis. There is no edema. DIAGNOSTIC STUDIES: EKG, sinus rhythm with a right bundle-branch block. PERTINENT LABORATORY DATA: Hemoglobin is 12.1, potassium 4.2, creatinine 2.67, BUN 41. The patient says he has not really urinated in three days. ASSESSMENT: 1. Acute renal failure secondary to volume depletion. 2. Cku-DU-oordidzmn infarction, probably demand ischemia. Troponin peak 1.6. 3. Underlying coronary disease with previous stent implantation. Previous catheterization has shown patent stent in the LAD with patent circumflex and right coronary arteries per Dr. Hardy's note. PLAN: 1. Agree with intravenous fluid repletion. 2. Echocardiography. 3. Continue aspirin. We will follow with you. Check iron levels tomorrow. Job ID: [id number]
[2020-02-22] MEDS ORDERED: diphenhydrAMINE 50 MG/ML VIAL IVP SCH (23:30)
[2020-02-23] MEDS ORDERED: Acetaminophen 325 MG Suppository PR SCH (00:15)
[2020-02-23 04:50] LABS: #Lymphocytes 0.3 thou/uL (1.20-3.40); #Monocytes 0.7 thou/uL (0.11-0.59); #Neutrophils 4.9 thou/uL (1.40-6.50); %Basophils 0.4 % (0.0-1.0); %Eosinophils 0.2 % (0.0-10.0); %Lymphocytes 5.7 % (21.0-51.0); %Monocytes 11.2 % (0.0-10.0); %Neutrophils 82.5 % (42.0-75.0); Hemoglobin 9.7 g/dL (14.0-18.0); Mean Corpuscular HGB CONC 32.3 g/dL (32.0-36.0); Mean Platelet Volume 10.1 fL (7.4-10.4); Platelet Count 142 thou/uL (130-400); RBC Distribution Width 14.2 % (11.5-14.5); Red Blood Cell (RBC) Count 3.23 mill/uL (4.70-6.10)
[2020-02-23 05:02] LABS: Iron 11 ug/dL (65-175); Iron Binding Capacity, Total 146 mcg/dL (261-462)
[2020-02-23 05:04] LABS: Anion Gap 15 mmol/L (10-20); BUN (Urea Nitrogen) 33 mg/dL (8.4-25.7); Calc. Creatinine Clearance 40 mL/min (70-130); Carbon Dioxide 18 mmol/L (23-31); Cardiac Risk 3.4 (Less than 4.5); Chloride 108 mmol/L (98-107); Cholesterol 84 mg/dl (< 200 Desired); Glucose 95 mg/dL (83-110); HDL Cholesterol 25 mg/dL (>60 Neg Risk); Iron 11 ug/dL (65-175); LDL Cholesterol, Calculated 40 mg/dL; Potassium 3.9 mmol/L (3.5-5.1); Sodium 137 mmol/L (136-145); Triglycerides 97 mg/dL (Less than 150)
[2020-02-23] MEDS: Sodium Chloride 0.9% 1,000 ML IV SCH ×3 (08:02→23:58)
[2020-02-23] MEDS ORDERED: Enoxaparin Sodium 30 MG/0.3 ML SYRINGE SC SCH (09:00)
[2020-02-23] MEDS ORDERED: FLU VACC QS2020-21(65YR UP)/PF 240 MCG/0.7 ML SYRINGE IM ONE (09:00)
[2020-02-23] MEDS: Pantoprazole 40 MG VIAL IVP SCH ×2 (10:29→20:59)
--- NOTE | 2020-02-23 12:02 | CON ---
DATE OF CONSULTATION: 02/23/2020 REASON FOR CONSULTATION: Nausea and vomiting. HISTORY OF PRESENT ILLNESS: Daniel Kwon is a 75-year-old man whom I have seen in the outpatient GI clinic. He previously followed with Dr. Cummings. 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 At [facility] in [place], in October 2017, he underwent distal esophagectomy with pull-through and J-tube placement. The J-tube was subsequently removed. He completed chemotherapy and radiation in January 2018 under the direction of Dr. Ken. He has had no evidence of disease recurrence since that time. 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 The pylorus was normal appearance at that time at 50 cm from the incisors. Unfortunately, just over the past 6 to 8 weeks or so, Mr. Kwon has started to have a lot of difficulty with keeping food down. He has problems with both solids and liquids. He has lost about 20 pounds over this time frame. He will routinely have nausea and emesis most every day of any food or sometimes even liquids that he tries to ingest. We got a gastric emptying scan on him within the past week on 02/18/2020, and this showed only 42% empty from the intrathoracic stomach into the abdomen at 4 hours. The radiographic findings were concerning for obstructive process. The patient has been trialed on metoclopramide over the past week, but he does not feel it has made any difference at all. Upon presentation, he was found to be dehydrated also with a urinary infection. He has some stable troponin elevation, which was thought to be due to demand ischemia from dehydration. He has been receiving IV fluid, feeling quite a bit better today, but the nausea persists. CT and chest imaging shows a small amount of gas in the urinary bladder, cholelithiasis, and dilated gallbladder, but no evidence of inflammatory changes. REVIEW OF SYSTEMS: Full review of systems including constitutional, head, eyes, ears, nose, throat, GI, , cardiovascular, respiratory, musculoskeletal, neurologic systems is negative except as noted in the HPI. PAST MEDICAL HISTORY: Esophageal cancer, status post esophagectomy and pull-through at [facility] in 2018, prostate cancer, coronary artery disease, cardiac stent in 2006, hypertension, kidney stones, thyroid disease, hemorrhoids, and prostatectomy in April 2017. ALLERGIES: MORPHINE AND FLEXERIL. OUTPATIENT MEDICATIONS: 1. Simvastatin. 2. Lisinopril. 3. Protonix 40 mg daily. 4. Allopurinol. 5. Hydrochlorothiazide. 6. Levothyroxine 75 mcg daily. 7. Zofran as needed. 8. Reglan 5 mg q.6 hours, new medication. 9. Primidone. 10. Aspirin 81 mg daily. FAMILY HISTORY: Significant for cancer and heart disease. SOCIAL HISTORY: He is a former smoker. No alcohol use. He has been for 56 years. PHYSICAL EXAMINATION: VITAL SIGNS: Temperature 99.0, pulse 86, blood pressure 96/53, and 95% oxygen saturation on room air. GENERAL: Appears chronically ill, but nontoxic, sitting up in bed comfortably. SKIN: He is mildly pale. No jaundice. No rashes were palpable. HEENT: Eyes, no scleral icterus. Extraocular movements intact. ENT, mucous membranes moist. No oral lesions. LYMPH: No submandibular or supraclavicular lymphadenopathy. Thyroid, nontender to palpation. HEART: Regular rate and rhythm. LUNGS: Clear to auscultation bilaterally. ABDOMEN: Surgical scars well healed. Nondistended. Bowel sounds are present. Soft and nontender to palpation throughout. EXTREMITIES: No peripheral edema. VESSELS: Radial pulses 2+ bilaterally. NEUROLOGIC: Cranial nerves 2 through 12 intact bilaterally. No focal deficits. LABORATORY STUDIES: Hemoglobin initially 12.1, now 9.7; WBC 6.0; and platelets 142. Sodium 137, potassium 3.9, BUN 33, creatinine 1.39. Troponin stable 1.60. Ferritin 706, iron 11, TIBC 140, so the iron studies are mixed. COVID PCR is negative. Urinalysis shows greater than 50 wbc's and rbc's. Blood cultures are pending showing no growth to date. IMAGING STUDIES: Renal ultrasound shows bilateral renal cysts. Bilateral nonobstructing renal stones. Chest x-ray showed subtle right basilar infiltrate. CT of the abdomen and pelvis demonstrates prior changes of esophagectomy and pull-through. There is cholelithiasis with gallbladder dilation to 9.7 cm. No evidence of inflammatory changes. There is a small amount of gas in the urinary bladder. There is no evidence of small-bowel obstruction. ASSESSMENT AND PLAN: 1. Nausea and vomiting. 2. History of esophageal cancer, status post esophagectomy and pull-through in [address] [facility] in [place]. 3. Delayed gastric emptying, severe, noted on recent gastric emptying scan. I had a long discussion with the patient today. This is a complicated situation. He clearly has a severe amount of gastric retention and failure of gastric emptying, involving the intrathoracic portion of his remaining stomach, which is most of the remaining stomach. It is possible this is related primarily to vagotomy injury, versus mechanical obstruction at the level of the diaphragmatic pinch. I have a low suspicion for any recurrent malignancy given that this was not visualized on fairly recent EGD 4 months ago. I suppose he might have a bezoar obstruction within his intrathoracic stomach, which might be causing his more recent worsening. We are going to proceed with diagnostic EGD tomorrow, remove any bezoar if present, and depending on findings, consider possible Botox injection of the pylorus, though chances for real symptomatic improvement with this are probably minimal. I doubt that Reglan is going to be of any real use in this situation, and indeed, he has not had any benefit from it so far. Depending on findings tomorrow, there may be no other option, but to seek repeat surgical opinion, for consideration of pyloroplasty, or if there is no other option, perhaps repeat jejunostomy tube placement for nutrition. If so, the patient would prefer to see this surgeons who performed his surgery couple of years ago at [facility]. 4. Further recommendations following upper endoscopy tomorrow. Thank you for the consultation. Please call anytime with questions or concerns. Job ID: [id number]
[2020-02-23] MEDS ORDERED: cefTRIAXone\\ROCEPHIN 1 GM in Sodium Chloride 0.9% 100 ML IVPB SCH (13:00)
[2020-02-23 13:49] LABS: Troponin I 0.742 ng/mL (< 0.028)
--- NOTE | 2020-02-23 13:51 | PRG ---
DATE OF SERVICE: SUBJECTIVE: Mr. Kwon is resting comfortably. He feels better after the intravenous fluid. There is no chest pain or pressure. He is unable to swallow even liquids. OBJECTIVE: VITAL SIGNS: His blood pressure earlier was 96/53, now it is 125/63; pulse is 83, it is regular. LUNGS: Clear. CARDIAC: Normal S1, normal S2. There is no murmur, rub, or gallop. ABDOMEN: Soft, nontender. EXTREMITIES: There is no edema. DIAGNOSTIC STUDIES: EKG as previously showed right bundle-branch block. Hemoglobin has dropped from 12.1 to 9.7 with hydration. Ferritin levels are elevated. Echocardiogram shows ejection fraction 55% to 60% with small area of akinesis at the tip of the apex. ASSESSMENT: 1. Unable to swallow even liquids, presumably due to esophageal obstruction. 2. History of esophageal cancer, subsequent radiation and chemotherapy. 3. Increased troponin level, probably mostly [id number] demand ischemia. At some point, the patient has had a small amount of injury to the heart muscle. 4. Renal failure is improved. Creatinine has gone from 2.67 to 1.39 with hydration. PLAN: 1. Continue fluid. 2. GI as planned. 3. Continue aspirin. He is actually not on that, but in view of the stent should really be on aspirin. 4. We will avoid dual antiplatelet drugs in case any other interventions needed. 5. Repeat troponin level. If it is trending down, then it will be reasonable to transfer him to Medical, which is the planned to further evaluate his esophageal situation. We will continue to follow with you. Job ID: [id number]
[2020-02-23 14:33] VITALS: BMI 22.8
--- NOTE | 2020-02-23 14:48 | PDOC.HOSPP ---
- Subjective Encounter Date: 02/23/20 Subjective: Patient reported he was doing okay. He is essentially taking small sips of liquids in his mouth and spitting it out rather than trying to swallow it. - Objective Vital Signs & Weight: Vital Signs (12 hours) Temp Pulse Resp BP Pulse Ox 02/23/20 12:28 97.8 F 83 16 125/63 96 02/23/20 07:51 98.4 F 86 12 96/53 L 95 02/23/20 05:30 94 L 02/23/20 05:27 99.0 F 96 18 105/55 L 92 L Weight Admit Weight 137 lb 14.4 oz Weight 142 lb I&O: 02/22/20 02/23/20 02/24/20 06:59 06:59 06:59 Intake Total 1500 Output Total 1100 Balance 400 Result Diagrams: 02/23/20 04:30 02/23/20 04:30 Hospitalist ROS - Medication Medications: Active Medications Generic Name Dose Route Start Last Admin Trade Name Freq PRN Reason Stop Dose Admin Enoxaparin Sodium 30 mg 02/23/20 09:00 02/23/20 13:02 Enoxaparin Sodium 30 Mg/0.3 Ml Syringe SC 30 mg 0900 CHOLO Administration Sodium Chloride 1,000 mls @ 125 mls/hr 02/22/20 15:33 02/23/20 08:02 Normal Saline 0.9% IV 1,000 mls .Q8H CHOLO Administration Ceftriaxone Sodium 1 gm/ 100 mls @ 200 mls/hr 02/23/20 13:00 02/23/20 13:02 Sodium Chloride IVPB 100 mls 1300 CHOLO Administration Ondansetron HCl 4 mg 02/22/20 15:33 02/22/20 23:02 Ondansetron Pf 4 Mg/2 Ml Vial IVP 4 mg Q6H PRN Administration Nausea/Vomiting Pantoprazole Sodium 40 mg 02/23/20 09:00 02/23/20 10:29 Pantoprazole 40 Mg Vial IVP 40 mg Q12HR CHOLO Administration - Exam General Appearance: NAD, awake alert Heart: RRR, no murmur, no gallops, no rubs, normal peripheral pulses Respiratory: CTAB, no wheezes, no rales, no ronchi, normal chest expansion, no tachypnea, normal percussion Gastrointestinal: soft, non-tender, non-distended, normal bowel sounds, no palpable masses, no hepatomegaly, no splenomegaly, no bruit Extremities: no cyanosis, no clubbing, no edema Skin: normal turgor Neurological: no focal deficits Musculoskeletal: normal tone, normal strength, no muscle wasting Psychiatric: normal affect, normal behavior, A&O x 3 Hosp A/P (1) Dysphagia Code(s): R13.10 - DYSPHAGIA, UNSPECIFIED Status: Acute (2) History of esophageal cancer Code(s): Z85.01 - PERSONAL HISTORY OF MALIGNANT NEOPLASM OF ESOPHAGUS Status: Acute (3) Myocardial infarction type 2 Code(s): I21.A1 - MYOCARDIAL INFARCTION TYPE 2 Status: Acute (4) Dehydration Code(s): E86.0 - DEHYDRATION Status: Acute (5) [place]VILLE (acute kidney injury) Code(s): N17.9 - ACUTE KIDNEY FAILURE, UNSPECIFIED Status: Acute (6) UTI (urinary tract infection) Status: Acute (7) History of prostate cancer Code(s): Z85.46 - PERSONAL HISTORY OF MALIGNANT NEOPLASM OF PROSTATE Status: Acute (8) Hypertension Code(s): I10 - ESSENTIAL (PRIMARY) HYPERTENSION Status: Acute (9) Hyperlipidemia Code(s): E78.5 - HYPERLIPIDEMIA, UNSPECIFIED Status: Acute (10) CAD (coronary artery disease) Code(s): I25.10 - ATHSCL HEART DISEASE OF [place] CORONARY ARTERY W/O ANG PCTRS Status: Acute - Plan This is a 75-year-old male who presented to the hospital with persistent and worsening dysphagia and vomiting. The patient has a history of esophageal cancer with esophagectomy. He had a negative endoscopy about 6 months ago. He has been unable to take p.o.'s without regurgitating them. He has lost weight and ultimately presented because his symptoms became so severe that he cannot take p.o.'s. Dysphagia: Patient has a history of esophageal cancer with esophagectomy. Had endoscopy about 6 months ago which did not reveal any evidence of recurrence or significant mass. Consult GI. Will likely need repeat endoscopy to rule out obstructive disease. NSTEMI type II: Likely due to dehydration related issues. Cardiology consult appreciated. Holding on any aggressive anticoagulation due to his pending procedure. [place] secondary to dehydration: Patient has been unable to take significant p.o.'s. He has received IV fluids and his renal function has significantly improved with hydration. Hypertension: Patient actually has had relatively low blood pressure of late and has not been on medications. Will not resume any now. Hypothyroidism: We will hold any oral medications until he has further evaluation. CAD: History of stent placement. Will likely need to be on some form of antiplatelet therapy if possible pending his work-up. UTI: Continue Rocephin and follow-up on cultures. Patient has history of prostatectomy due to prostate cancer. Patient has chronic urinary incontinence.
[2020-02-24] MEDS ORDERED: Ondansetron HCl/PF 4 MG/2 ML Vial IVP PRN (09:27)
[2020-02-24] MEDS ORDERED: Promethazine HCl 25 MG/ML VIAL IM PRN (09:27)
[2020-02-24] MEDS ORDERED: Promethazine HCl 25 MG/ML VIAL SLOW IVP PRN (09:27)
--- NOTE | 2020-02-24 10:34 | OP ---
DATE OF PROCEDURE: 02/24/2020 PROCEDURE PERFORMED: Esophagogastroduodenoscopy (diagnostic). INDICATIONS FOR PROCEDURE: Nausea, vomiting, abnormal GI imaging concerning for possible gastric outlet obstruction. DESCRIPTION OF PROCEDURE: After the risks and benefits of the procedure were explained to the patient including risks of bleeding, infection, perforation, reactions to anesthesia, aspiration, and/or pain, informed consent was obtained. The patient was then taken to the endoscopy suite where he underwent general anesthesia and subsequent endotracheal tube intubation. Once the patient was intubated and sedated, he was maneuvered into the left lateral decubitus position followed by introduction of the standard gastroscope into the mouth with intubation of the esophagus, stomach, and the proximal small intestines with the findings listed below. The patient tolerated the procedure well with no immediate perioperative complications. On conclusion of the procedure, all equipment was removed from the patient and he was transferred to PACU in satisfactory condition. FINDINGS: Esophagus: Two patches of salmon-colored mucosa were seen in the proximal esophagus just distal to the upper esophageal sphincter with the gastroesophageal anastomosis noted just distal to these patches at 23 cm past the incisors. The gastroesophageal anastomosis appeared normal with healthy tissue and no evidence of luminal narrowing, stricture formation, or mass lesions. Surgical change consistent with a partial esophagectomy and gastric pull-up was noted at this particular position, again with healthy-appearing anastomosis. There was no evidence of erosions, ulcerations, mass lesions, or active/recent bleeding in this region. Stomach: Again, surgical change consistent with a gastric pull-up was noted at 23 cm past the incisors with normal-appearing gastric mucosa seen distal to this. Based on the current anatomy, the gastric fundus, body, lesser curve, and greater curvature were normal in appearance. There was no evidence of erosions, ulcerations, mass lesions, or active/recent bleeding. However, luminal narrowing of the stomach was noted between 45 and 49 cm past the incisors, consistent with extrinsic compression of the stomach in this region. There was no evidence of stricture formation in this region as well. The pylorus was then noted at approximately 50 cm past the incisors, again with no evidence of stricture or stenosis within the pylorus and was easily traversed with the gastroscope. However, a large amount of retained fluid was seen on entry into the esophagus and the stomach, but no significant amounts of fluid were noted distal to this luminal narrowing between 45 and 49 cm. Duodenum: Normal-appearing mucosa was seen in both the duodenal bulb and second portion of the duodenum. The scope was advanced to approximately 70 cm past the incisors with no evidence of luminal narrowing or obstruction. There was no evidence of erosions, ulcerations, mass lesions, or active/recent bleeding. IMPRESSION: 1. Surgical change consistent with a partial esophagectomy and gastric pull-up was seen in the proximal esophagus with healthy-appearing gastroesophageal anastomosis. 2. Significant amount of retained fluid was seen in the esophagus and proximal stomach, likely secondary to the luminal narrowing in the distal stomach. 3. Significant luminal narrowing of the intrathoracic stomach was seen from 45 to 49 cm past the incisors, but was easily traversed with the gastroscope, indicating probable extrinsic compression. There was no evidence of stricture in this region or pyloric stenosis. 4. Normal-appearing pylorus that was easily traversed with the gastroscope. RECOMMENDATIONS: 1. Would consider obtaining a barium swallow on the patient to further delineate the anatomy in the region of the luminal narrowing. 2. Would consider consultation of Cardiothoracic Surgery Service for evaluation of this patient, especially with the CT scan showing luminal narrowing at the level of the intrathoracic aorta that may be causing extrinsic compression of the esophagus. 3. Continue the patient on PPI b.i.d. 4. Continue with aggressive antiemetic medications. 5. Agree with continuation of antibiotics for the time being given the increased risk of aspiration secondary to obstruction. We will continue to follow. Please call with any questions. Job ID: [id number]
[2020-02-24] MEDS ORDERED: Lidocaine 1% PF 5 ML VIAL ONE (10:47)
[2020-02-24] MEDS ORDERED: PROPOFOL 200 MG/20 ML VIAL ONE (10:47)
[2020-02-24] MEDS ORDERED: Dexamethasone 20 MG/5 ML VIAL ONE (10:47)
[2020-02-24] MEDS ORDERED: Succinylcholine 200 MG/10 ml SYRINGE FS ONE (10:47)
[2020-02-24] MEDS ORDERED: Ondansetron PF 4 MG/2 ML Vial ONE (10:47)
[2020-02-24] MEDS ORDERED: Iopamidol 370 76% 50 ML VIAL FS ONE (12:53)
--- NOTE | 2020-02-24 13:29 | CT ---
EXAM: CT Abdomen WO Con PROVIDED CLINICAL HISTORY: Vomiting COMPARISON: CT 02/22/2020 FINDINGS: There are small bilateral pleural fluid collections demonstrated. The majority of the stomach is located intrathoracically, with associated suture material. Administer ed oral contrast material is present within the intrathoracic portion of the stomach, the intra-abdominal portion of the stomach and within normal appearing proximal small bowel loops. The st omach does not appear abnormally distended. Heterogeneous density within the lumen of the intrathoracic portion of the stomach may reflect retained ingested material. There is a somewhat poly poid appearance to the mucosa of the distal aspects of the pylorus, possibly on the basis of coaptation related to nondistention. Bilateral nonobstructing renal calculi, left renal cysts and gallstones are redemonstrated. The 8 mm calculus previously seen in the right renal pelvis is now present in the region of the right UPJ Conspicuous atherosclerotic vascular calcification is again seen. There is no evidence for bowel obst ruction, free intraperitoneal fluid or free intraperitoneal air. The spleen, pancreas and adrenal glands demonstrate no evidence for interval change. The osseous structures demonstrate no concerning lytic or blastic lesions. IMPRESSION: 1. No evidence for obstruction. 2. Nonspecific polypoid appearance to the terminal aspects of the pyloric mucosa, possibly on the bas is of nondistention. Consider upper GI or endoscopy as indicated. 3. 8 mm urinary tract calculus now present within the right UPJ region, without evidence for associat ed obstructive change. 4. Other chronic findings as above.
[2020-02-24] MEDS: Pantoprazole 40 MG VIAL IVP SCH ×2 (14:50→20:42)
[2020-02-24] MEDS: Aspirin 81 mg Enteric Coated Tablet PO SCH (14:50)
--- NOTE | 2020-02-24 18:31 | PDOC.HOSPP ---
- Subjective Encounter Date: 02/24/20 Subjective: Had endoscopy this morning. Feels well. No new complaints. - Objective Vital Signs & Weight: Vital Signs (12 hours) Temp Pulse Resp BP Pulse Ox 02/24/20 15:34 98.0 F 75 18 128/74 95 02/24/20 11:38 98.0 F 74 18 128/74 96 02/24/20 10:50 98.1 F 80 18 114/67 94 L 02/24/20 08:00 94 L 02/24/20 07:36 98.2 F 85 18 114/66 94 L Weight Admit Weight 137 lb 14.4 oz Weight 142 lb I&O: 02/23/20 02/24/20 02/25/20 06:59 06:59 06:59 Intake Total 1500 1060 Output Total 1100 100 Balance 400 960 Result Diagrams: 02/23/20 04:30 02/23/20 04:30 Hospitalist ROS - Medication Medications: Active Medications Generic Name Dose Route Start Last Admin Trade Name Freq PRN Reason Stop Dose Admin Aspirin 81 mg 02/24/20 09:00 02/24/20 14:50 Aspirin 81 Mg Enteric Coated Tablet PO Not Given DAILY CHOLO Levofloxacin 500 mg/ Device 100 mls @ 100 mls/hr 02/24/20 10:00 02/24/20 14:50 IVPB 100 mls 1000 CHOLO Administration Pantoprazole Sodium 40 mg 02/23/20 09:00 02/24/20 14:50 Pantoprazole 40 Mg Vial IVP 40 mg Q12HR CHOLO Administration - Exam General Appearance: NAD, awake alert Heart: RRR, no murmur, no gallops, no rubs, normal peripheral pulses Respiratory: CTAB, no wheezes, no rales, no ronchi, normal chest expansion, no tachypnea, normal percussion Gastrointestinal: soft, non-tender, non-distended, normal bowel sounds, no palpable masses, no hepatomegaly, no splenomegaly, no bruit Extremities: no cyanosis, no clubbing, no edema Hosp A/P (1) Dysphagia Code(s): R13.10 - DYSPHAGIA, UNSPECIFIED Status: Acute (2) History of esophageal cancer Code(s): Z85.01 - PERSONAL HISTORY OF MALIGNANT NEOPLASM OF ESOPHAGUS Status: Acute (3) Myocardial infarction type 2 Code(s): I21.A1 - MYOCARDIAL INFARCTION TYPE 2 Status: Acute (4) Dehydration Code(s): E86.0 - DEHYDRATION Status: Acute (5) [place] (acute kidney injury) Code(s): N17.9 - ACUTE KIDNEY FAILURE, UNSPECIFIED Status: Acute (6) UTI (urinary tract infection) Status: Acute (7) History of prostate cancer Code(s): Z85.46 - PERSONAL HISTORY OF MALIGNANT NEOPLASM OF PROSTATE Status: Acute (8) Hypertension Code(s): I10 - ESSENTIAL (PRIMARY) HYPERTENSION Status: Acute (9) Hyperlipidemia Code(s): E78.5 - HYPERLIPIDEMIA, UNSPECIFIED Status: Acute (10) CAD (coronary artery disease) Code(s): I25.10 - ATHSCL HEART DISEASE OF [place] CORONARY ARTERY W/O ANG PCTRS Status: Acute - Plan This is a 75-year-old male who presented to the hospital with persistent and worsening dysphagia and vomiting. The patient has a history of esophageal cancer with esophagectomy. He had a negative endoscopy about 6 months ago. He has been unable to take p.o.'s without regurgitating them. He has lost weight and ultimately presented because his symptoms became so severe that he cannot take p.o.'s. Dysphagia: Patient has a history of esophageal cancer with esophagectomy. Had endoscopy about 6 months ago which did not reveal any evidence of recurrence or significant mass. Consult GI. EGD on 02/24/2020. No significant findings intraluminally. Patient appeared to have some external compression of the distal stomach. CT with contrast was obtained which did not reveal any evidence of external compressive forces. Discussed with Dr. Sams. We will allow the patient clear liquids tonight. If he continues to have symptoms will need to talk to his surgeon in [place]. The surgeon is Tay Tadeo at [facility]. Patient feels like he may not be up to any surgery at this time. We did discuss the possibility of a jejunostomy tube for nutritional purposes for a period of time. NSTEMI type II: Likely due to dehydration related issues. Cardiology consult appreciated. Holding on any aggressive anticoagulation due to his pending procedure. [place] secondary to dehydration: Patient has been unable to take significant p.o.'s. He has received IV fluids and his renal function has significantly improved with hydration. Hypertension: Patient actually has had relatively low blood pressure of late and has not been on medications. Will not resume any now. Not sure how well he would tolerate p.o.'s at this time anyway. Hypothyroidism: We will hold any oral medications until he has further evaluation. Unclear that he will be able to tolerate or absorb p.o.'s at this time. CAD: History of stent placement. Will likely need to be on some form of antiplatelet therapy if possible pending his work-up. UTI: Continue Rocephin and follow-up on cultures. Patient has history of prostatectomy due to prostate cancer. Patient has chronic urinary incontinence.
[2020-02-24] MEDS: Sodium Chloride 0.9% 1,000 ML IV SCH ×2 (19:15)
[2020-02-25] MEDS: Sodium Chloride 0.9% 1,000 ML IV SCH (02:56)
[2020-02-25 08:31] VITALS: BP 120/72; TEMP 97.5
[2020-02-25] MEDS: Aspirin 81 mg Enteric Coated Tablet PO SCH (09:04)
[2020-02-25] MEDS: Pantoprazole 40 MG VIAL IVP SCH (09:05)
--- NOTE | 2020-02-25 15:22 | PDOC.DS.DS ---
Provider - Provider Date of Admission: 02/22/20 12:48 Date of Discharge: 02/25/20 Admitting Provider: London Rebolledo MD Primary Care Physician: IVAN BRIDGES MD Course - Hospital Course Hospital Course: This is a 75-year-old male who presented to the hospital with persistent and worsening dysphagia and vomiting. The patient has a history of esophageal cancer with esophagectomy. He had a negative endoscopy about 6 months ago. He has been unable to take p.o.'s without regurgitating them. He has lost weight and ultimately presented because his symptoms became so severe that he cannot take p.o.'s. Dysphagia: Patient has a history of esophageal cancer with esophagectomy. Had endoscopy about 6 months ago which did not reveal any evidence of recurrence or significant mass. Consult GI. EGD on 02/24/2020. No significant findings intraluminally within some retained liquids which were evacuated. Patient appeared to have some external compression of the distal stomach. CT with contrast was obtained which did not reveal any evidence of external compressive forces. Subsequently the patient was allowed to go back on clear liquid diet. He seemed to tolerate that well. Discussed the subsequent options with the patient at length. Ultimately we agreed to try to let him go home on full liquids. He will try to maximize the nutritional value of full liquids. He is to schedule outpatient follow-up with his thoracic surgeon in [place]. Should he have significant failure of this plan he should return to [facility] in [place] or here. Ultimately he will need to see that surgeon in [place] to have definitive care. NSTEMI type II: Likely due to dehydration related issues. Cardiology consult appreciated. Holding on any aggressive anticoagulation due to his pending procedure. Echocardiogram was obtained which revealed an EF of 55 to 60% with the very tip of the apex being akinetic. There was mild to moderate enlargement of the right ventricle. [place] secondary to dehydration: Patient has been unable to take significant p.o.'s. He has received IV fluids and his renal function has significantly improved with hydration. Hypertension: Patient actually has had relatively low blood pressure of late and has not been on medications. Patient was able to maintain off significant blood pressure medications in the hospital. Once he was able to take p.o.'s he was felt stable to resume those as tolerated. Hypothyroidism: We will hold any oral medications until he has further evaluation. At the time of discharge, as he was taking p.o.'s, will resume. CAD: History of stent placement. Can resume his aspirin allergies taking p.o.'s and there were no intraluminal lesions. UTI: Empirically started on Rocephin initially. Cultures grew Enterococcus sensitive to quinolones. Once he was taking p.o.'s adequately he was converted to oral quinolones. Patient has history of prostatectomy due to prostate cancer. Patient has chronic urinary incontinence. Resuscitation Status: 02/22/20 13:24 Resuscitation Status Routine Resuscitation Status: FULL: Full Resuscitation - Labs Lab Results: 02/23/20 04:30 02/23/20 04:30 Microbiology - Entire Visit 02/22/20 12:36 Venous blood - Left Arm Blood Culture - Preliminary NO GROWTH AT 48 HOURS 02/22/20 12:36 Venous blood - Right Arm Blood Culture - Preliminary NO GROWTH AT 48 HOURS 02/22/20 11:28 Urine Straight Catheter Urine Culture - Final Enterobacter aerogenes - Physical Exam Vitals: Vital Signs (12 hours) Temp Pulse Resp BP Pulse Ox 02/25/20 08:00 97.5 F L 60 18 120/72 97 Weight Admit Weight 137 lb 14.4 oz Weight 142 lb Physical Exam: The patient was seen and examined on the day of discharge. Problem - Problem (1) Dysphagia Code(s): R13.10 - DYSPHAGIA, UNSPECIFIED Status: Acute (2) History of esophageal cancer Code(s): Z85.01 - PERSONAL HISTORY OF MALIGNANT NEOPLASM OF ESOPHAGUS Status: Acute (3) Myocardial infarction type 2 Code(s): I21.A1 - MYOCARDIAL INFARCTION TYPE 2 Status: Acute (4) Dehydration Code(s): E86.0 - DEHYDRATION Status: Acute (5) [place] (acute kidney injury) Code(s): N17.9 - ACUTE KIDNEY FAILURE, UNSPECIFIED Status: Acute (6) UTI (urinary tract infection) Status: Acute (7) History of prostate cancer Code(s): Z85.46 - PERSONAL HISTORY OF MALIGNANT NEOPLASM OF PROSTATE Status: Acute (8) Hypertension Code(s): I10 - ESSENTIAL (PRIMARY) HYPERTENSION Status: Acute (9) Hyperlipidemia Code(s): E78.5 - HYPERLIPIDEMIA, UNSPECIFIED Status: Acute (10) CAD (coronary artery disease) Code(s): I25.10 - ATHSCL HEART DISEASE OF [place] CORONARY ARTERY W/O ANG PCTRS Status: Acute (11) Protein-calorie malnutrition, moderate Code(s): E44.0 - MODERATE PROTEIN-CALORIE MALNUTRITION Status: Acute - Time spent with Patient (mins): 35 Plan - Discharge Medications Prescriptions: Levofloxacin [Levaquin Oral Solution] 500 mg PO DAILY #200 ml Home Medications: Medication Instructions Recorded Confirmed Type Allopurinol [Zyloprim] 300 mg PO QAM 12/20/17 02/22/20 History Levothyroxine Sodium [Synthroid] 75 mcg PO QAM 12/20/17 02/22/20 History Lisinopril 40 mg PO QAM 12/20/17 02/22/20 History Pantoprazole Sodium 40 mg PO QPM 12/20/17 02/22/20 History Simvastatin [Zocor] 40 mg PO QPM 12/20/17 02/22/20 History Acetaminophen/Diphenhydramine 2 tablet PO HS PRN 09/26/18 02/22/20 History [Acetaminophen PM Caplet] Aspirin [Ecotrin Low Strength] 81 mg PO HS 09/26/18 02/22/20 History Primidone [Mysoline] 0.5 tab PO DAILY 09/26/18 02/22/20 History Primidone [Mysoline] 1 tab PO HS 09/26/18 02/22/20 History Cholecalciferol (Vitamin D3) 1,000 unit PO DAILY 08/29/19 02/22/20 History [Vitamin D3] Levofloxacin [Levaquin Oral 500 mg PO DAILY #200 ml 02/25/20 Rx Solution] Allergies: cyclobenzaprine [From Flexeril] Allergy (Verified 02/22/20 15:46) Rash GENERIC morphine Allergy (Verified 02/22/20 15:46) Rash - Discharge Instructions Discharge Instructions:: Outpatient follow up with Dr. Tay Tadeo Activity:: Activity as Tolerated Nourishment:: Other (full liquids) - Follow up Plan Referrals: Timothy Sánchez MD [Active] - IVAN BRIDGES [Primary Care Provider] - 7 Days Disposition: HOME Quality - Care Measures CORE MEASURES:: N/A
--- NOTE | 2020-02-26 07:56 | PQF ---
CLINICAL DOCUMENTATION CLARIFICATION FORM: Dear : Timothy Boudreaux Date / Time: 02/26/20754 Please exercise your independent, professional judgment in responding to the clarification form. Clinical indicators are provided on the bottom of this form for your review Please check appropriate box(es): [ ] Sepsis due to UTI [ ] Severe sepsis due to UTI with Acute Kidney injury [ x ] Localized infection without sepsis [ ] Other diagnosis, please specify [ ] Unable to determine Physician Signature: Date/Time: For continuity of documentation, please document condition throughout progress notes and discharge summary. Thank You. To be completed by CDI/Coding staff for physician review: Present Clinical Indicators - Signs / Symptoms / Labs Results and Location in Medical Record [x] WBC 13.2, Plt cound 172, Neutrophils 85, Band 3, Lactic acid 1.7 Laboratory 02/21 [x] Urinalysus: pH 5.0, Kerones trace A, RBC >50, WBC >50, Bacteria 4+ Laboratory 02/21 [x] Blood culture: No growth ay 48 hrs Microbiology 02/21 [x] Urine Culture: Enterobacter aerogenes Microbiology 02/21 [x] BP 92/49, Pulse 102, Resp 24, Temp 98.1 Vital signs 02/21 [x] Pt demonstrates an Acute Kidney Injury, signs of Sepsis with likely urinary tract source ED notes p9 02/21 [x] UTI H&P p1 02/21 Dr Rebolledo [x] ORVILLE H&P p1 02/21 Dr Rebolledo Present Risk Factors Results and Location in Medical Record [x] 75 year-old Male H&P p1 / Dr Rebolledo [x] UTI H&P p1 02/21 Dr Rebolledo Present Treatments Results and Location in Medical Record [x] IVF NS 1L APR 19 [x] IV Vancomycin 1 gm APR 19 [x] IV Levofloxacin 500 mg APR 19 [x] IV Ceftriaxone 1 gm APR 19 CDS/Insecticide Expert Signature: Kelin Leavitt Meganomarneal Phone #: [phone] Date/Time: 02/26/20 0422 This is a permanent part of the Medical Record [facility]
== END 2020-02-25 13:30 | disposition home or self-care (01) | DRG 682 ==
LOC: ERS 10:07 → 2NO 12:48 → T4-B 02-23 15:17
PROVIDERS: ADMIT Internal Medicine; ATTEND Internal Medicine
PROC: 0DJ08ZZ Inspection of Upper Intestinal Tract, Via Natural or Artificial Opening Endoscopic (ICD-10-PCS; principal; 2020-02-24)
DX: N17.9 Acute kidney failure, unspecified (principal); I21.A1 Myocardial infarction type 2; N39.0 Urinary tract infection, site not specified; Z20.822 Contact with and (suspected) exposure to COVID-19; Z23 Encounter for immunization; E86.0 Dehydration; R13.10 Dysphagia, unspecified; I10 Essential (primary) hypertension; E03.9 Hypothyroidism, unspecified; B95.2 Enterococcus as the cause of diseases classified elsewhere; E86.9 Volume depletion, unspecified; E78.5 Hyperlipidemia, unspecified; R32 Unspecified urinary incontinence; I25.10 Atherosclerotic heart disease of native coronary artery without angina pectoris; Z95.5 Presence of coronary angioplasty implant and graft; Z85.46 Personal history of malignant neoplasm of prostate; Z90.79 Acquired absence of other genital organ(s); Z85.01 Personal history of malignant neoplasm of esophagus; Z79.899 Other long term (current) drug therapy; Z79.890 Hormone replacement therapy; Z79.82 Long term (current) use of aspirin; Z88.5 Allergy status to narcotic agent; Z88.8 Allergy status to other drugs, medicaments and biological substances; Z92.3 Personal history of irradiation; Z92.21 Personal history of antineoplastic chemotherapy
CPT/HCPCS: 36415; 51701; 71045; 74150; 74176; 76770; 80048; 80053; 80061; 81003; 81015; 82553; 82728; 83540; 83550; 83605; 83690; 83735; 83880; 84484; 85025; 87040; 87077; 87086; 87186; 87635; 90471; 90662; 93005; 93010; 93306; 96361; 96365; 96375; C9113; G0008; J0696; J1100; J1200; J1650; J1956; J2405; J2704; J3370; J3490; Q9967; U0003

== ENCOUNTER 2020-03-22 11:59 | Outpatient (CLI) | payer MEDICARE, OTHER ==
[2020-03-23 07:04] LABS: SARS-CoV-2 PCR by NAA Not Detected (NotDetected)
== END 2020-03-22 12:00 | disposition home or self-care (01) ==
LOC: LABBT 11:59
PROVIDERS: ATTEND Internal Medicine Gastroenterology
DX: Z01.812 Encounter for preprocedural laboratory examination (principal); C15.9 Malignant neoplasm of esophagus, unspecified; Z20.822 Contact with and (suspected) exposure to COVID-19
CPT/HCPCS: U0003; U0005; 87635

== ENCOUNTER 2020-03-26 08:24 | Outpatient (CLI) | payer MEDICARE, OTHER ==
--- NOTE | 2020-03-26 11:01 | RAD ---
Upper GI: 03/26/2020 HISTORY: Esophageal cancer status post esophagectomy with gastric pull-through procedure. The patient reports recent balloon dilation. FINDINGS: [employer] Administrator imaging of the abdomen demonstrates a nonobstructed bowel gas pattern. Numerous calci fications are noted within bilateral upper quadrant suggesting numerous renal calculi, better seen on recent CT examination. There is evidence of multilevel prior kyphoplasty. Assessment is limited on this examination as the patient was unable to tolerate the effervescent jorge tals as well as the fact that the patient could only tolerate a small amount of contrast media. The initial imaging following ingestion of contrast media over the chest demonstrates a patent gastric pu ll-through with incomplete contrast opacification which may relate to small volume of ingested contrast or debris within the postoperative intrathoracic stomach. The contrast media traverses the t he level of the diaphragmatic hiatus and enters the portion of the stomach within the upper abdomen. The contrast media then extends into the proximal duodenum with no evidence for leak or obst ruction. Of note, there is a fixed area of narrowing involving the stomach at the level of the diaphragmatic hiatus at the junction of the intrathoracic and intra-abdominal portions of the postope rative stomach. Secondary to this, there is only a small amount of contrast media within the intra-abdominal portion of the stomach and thus the intra-abdominal portion of the stomach cannot be adequately assessed. Recent CT performed 03/15/2020 demonstrated findings suspicious for possible abnormality of the pylorus versus underdistention. This cannot be adequately assessed on this examina tion. No obvious mass is seen but direct visualization would be advised for full assessment. A frontal radiograph was performed over the chest and upper abdomen at the end of this examination wh ich demonstrates residual contrast media within the distal esophagus, the upper abdominal stomach, and the proximal duodenum with only minimal emptying over approximately 20 minutes. IMPRESSION: No evidence for leak or obstruction. There is a fixed area of narrowing of the stomach at the junction of the intrathoracic and intra-abdominal components. Thus, only a small amount of contrast media extends into the intra-abdominal stomach and duodenum, limiting assessment. No discret e mass lesion is seen in this region. Findings on CT may be on the basis of a underdistended/collapsed pylorus. This distinction would be best made with direct visualization or po ssibly short-term follow-up CT examination.
== END 2020-03-26 08:25 | disposition home or self-care (01) ==
LOC: RAD 08:24
PROVIDERS: ATTEND Internal Medicine Gastroenterology
DX: K22.711 Barrett's esophagus with high grade dysplasia (principal); C16.0 Malignant neoplasm of cardia; R13.10 Dysphagia, unspecified
CPT/HCPCS: 74246

== ENCOUNTER 2020-04-29 11:10 | Outpatient (CLI) | payer MEDICARE, OTHER | END 2020-04-29 11:11 | disposition home or self-care (01) | LOC: PET 11:10 | PROVIDERS: ATTEND Internal Medicine Hematology & Oncology | DX: C15.5 Malignant neoplasm of lower third of esophagus (principal) | CPT/HCPCS: 78815; A9552 ==